=== PATIENT | female | born 2000 | race Caucasian/White ===

== ENCOUNTER 2018-06-24 18:35 | Emergency (ER) | payer BC ==
[2018-06-24 19:13] VITALS: BP 138/81
--- NOTE | 2018-06-24 19:30 | UC ---
Complaint Female HPI - HPI Summary HPI Summary: 17 yo female presents requesting STD testing. She tells me that she broke up with her boyfriend 1 month ago and knows that he was unfaithful and has a "bad history". She is not having any symptoms and does not believe the boyfriend has any STDs, but she is requesting testing. She does not want to any blod testing due to extreme fear of needles. Denies fever, chills, abdominal pain, n/v, dysuria, vaginal discharge or itching. - History Of Current Complaint Chief Complaint: UCGU Stated Complaint: PERSONAL Time Seen by Provider: 06/24/18 19:15 Hx Last Menstrual Period: 2 weeks ago spotting Severity Currently: None Pain Intensity: 0 Pain Scale Used: 0-10 Numeric - Allergies/Home Medications Allergies/Adverse Reactions: Allergies Allergy/AdvReac Type Severity Reaction Status Date / Time No Known Allergies Allergy Verified 06/24/18 19:14 Home Medications: Home Medications medroxyPROGESTERone ACETATE* [DEPO-Provera] 150 mg IM SEE INSTRUCTIONS 06/24/18 [History Confirmed 06/24/18] PMH/Surg Hx/FS Hx/Imm Hx - Additional Past Medical History Additional PMH: None - Surgical History Surgical History: None Surgery Procedure, Year, and Place: Denies - Family History Known Family History: Positive: None - Social History Occupation: Student Lives: Dormitory/Roommates Alcohol Use: Rare Substance Use Type: None Smoking Status (MU): Never Smoked Tobacco - Immunization History Vaccination Up to Date: Yes Review of Systems Constitutional: Negative Skin: Negative Cardiovascular: Negative Gastrointestinal: Negative Genitourinary: Negative Neurovascular: Negative Neurological: Negative Psychological: Negative All Other Systems Reviewed And Are Negative: Yes Physical Exam - Summary Physical Exam Summary: GENERAL: NAD. WDWN. No pain distress. SKIN: No rashes, sores, lesions, or open wounds. NECK: Supple. Nontender. No lymphadenopathy. CHEST: CTAB. No r/r/w. No accessory muscle use. Breathing comfortably and in no distress. CV: RRR. Without m/r/g. Pulses intact. Cap refill <2seconds ABDOMEN: Soft. NTTP. No distention or guarding. No CVA tenderness. Bowel sounds present NEURO: Alert. PSYCH: Age appropriate behavior. Triage Information Reviewed: Yes Vital Signs: Initial Vital Signs Temp 99.2 F 06/24/18 19:01 Pulse 93 06/24/18 19:01 Resp 20 06/24/18 19:01 BP 138/81 06/24/18 19:01 Pulse Ox 98 06/24/18 19:01 Vital Signs Reviewed: Yes Complaint Female Dx - Course Course Of Treatment: Declined blood testing or pelvic exam today. Will test for GC/C via urine and have pt f/u if she develops symptoms or would like further testing. - Differential Dx/Diagnosis Provider Diagnoses: High risk sexual activity Discharge - Sign-Out/Discharge Documenting (check all that apply): Patient Departure All imaging exams completed and their final reports reviewed: No Studies - Discharge Plan Condition: Stable Disposition: HOME Patient Education Materials: Sexually Transmitted Diseases (ED) Referrals: No Primary Care Phys,NOPCP [Primary Care Provider] - Additional Instructions: If you develop a fever, shortness of breath, chest pain, new or worsening symptoms - please call your PCP or go to the ED. 1) We will call you with results of your tests today - Billing Disposition and Condition Condition: STABLE Disposition: Home
--- NOTE | 2018-06-26 21:46 | UC ---
- Progress Note Progress Note: + Chlamydia reported. Patient contacted, has not been treated. Azithromycin sent to pharmacy. Discharge - Sign-Out/Discharge Documenting (check all that apply): Patient Departure All imaging exams completed and their final reports reviewed: No Studies - Discharge Plan Condition: Stable Disposition: HOME Prescriptions: Azithromycin TAB* [Zithromax TAB (Z-YARELI) 250 mg #6 tabs] 4 tab PO DAILY #4 tab Patient Education Materials: Sexually Transmitted Diseases (ED) Referrals: No Primary Care Phys,NOPCP [Primary Care Provider] - Additional Instructions: If you develop a fever, shortness of breath, chest pain, new or worsening symptoms - please call your PCP or go to the ED. 1) We will call you with results of your tests today - Billing Disposition and Condition Condition: STABLE Disposition: Home
== END 2018-06-24 19:40 | disposition home or self-care (01) ==
LOC: UCCORT 18:35
DX: Z72.51 High risk heterosexual behavior (principal)
CPT/HCPCS: 81003; 87086; 87491; 87591; 99211; G0463

== ENCOUNTER 2019-07-04 14:05 | Emergency (ER) | payer BC ==
[2019-07-04 15:59] VITALS: BP 119/65
--- NOTE | 2019-07-04 16:48 | UC ---
Throat Pain/Nasal Derick HPI - HPI Summary HPI Summary: 18-year-old female presents with onset of nasal congestion, clear nasal discharge, sinus pressure, sore throat, ear fullness, and occasional dry nonproductive cough yesterday. Denies fever, chills, dysphagia, chest pain, or shortness of breath. - History of Current Complaint Chief Complaint: UCGeneralIllness Stated Complaint: CONGESTION RUNNY NOSE SORE THROAT Time Seen by Provider: 07/04/19 16:27 Hx Obtained From: Patient Hx Last Menstrual Period: 06/22/19 Pain Intensity: 4 - Allergies/Home Medications Allergies/Adverse Reactions: Allergies Allergy/AdvReac Type Severity Reaction Status Date / Time No Known Allergies Allergy Verified 07/04/19 15:59 Home Medications: Home Medications NK [No Home Medications Reported] 07/04/19 [History Confirmed 07/04/19] PMH/Surg Hx/FS Hx/Imm Hx Previously Healthy: Yes - Denies significant PMH - Surgical History Surgical History: None Surgery Procedure, Year, and Place: Denies - Family History Known Family History: Positive: Non-Contributory - Social History Occupation: Student Lives: Dormitory/Roommates Alcohol Use: Rare Substance Use Type: None Smoking Status (MU): Never Smoked Tobacco - Immunization History Vaccination Up to Date: Yes Review of Systems All Other Systems Reviewed And Are Negative: Yes Constitutional: Negative: Fever, Chills Skin: Negative: Rash Eyes: Negative: Drainage, Eye Redness ENT: Positive: Sore Throat, Nasal Discharge, Sinus Congestion, Sinus Pain/ Tenderness. Negative: Ear Ache Respiratory: Positive: Cough. Negative: Shortness Of Breath Cardiovascular: Negative: Chest Pain Gastrointestinal: Positive: Negative Genitourinary: Positive: Negative Musculoskeletal: Positive: Negative Neurological: Positive: Negative Is Patient Immunocompromised?: No Physical Exam - Summary Physical Exam Summary: GENERAL APPEARANCE: Well developed, well nourished, alert and cooperative, and appears to be in no acute distress. EYES: Conjunctiva clear. No drainage. EARS: External auditory canals and tympanic membranes clear, hearing grossly intact. NOSE: Moderate nasal congestion. Clear nasal discharge. THROAT: Mild pharyngeal erythema. No tonsilar inflammation, swelling, exudate, or lesions. Uvula midline. NECK: Neck supple, non-tender without lymphadenopathy. CARDIAC: Normal S1 and S2. No S3, S4 or murmurs. Rhythm is regular. There is no peripheral edema, cyanosis or pallor. Extremities are warm and well perfused. Capillary refill is less than 2 seconds. Peripheral pulses intact. LUNGS: Clear to auscultation without rales, rhonchi, wheezing or diminished breath sounds. ABDOMEN: Positive bowel sounds. Soft, nondistended, nontender. No guarding or rebound. No masses or hepatosplenomegally. MUSKULOSKELETAL: ROM intact to all extremities. No joint erythema or tenderness. Normal muscular development. Normal gait. SKIN: Skin normal color, texture and turgor with no lesions or eruptions. Triage Information Reviewed: Yes Vital Signs: Initial Vital Signs Temp 99.7 F 07/04/19 15:55 Pulse 97 07/04/19 15:55 Resp 16 07/04/19 15:55 BP 119/65 07/04/19 15:55 Pulse Ox 100 07/04/19 15:55 Vital Signs Reviewed: Yes Throat Pain/Nasal Course/Dx - Course Course Of Treatment: 18-year-old female presents with onset of nasal congestion, clear nasal discharge, sinus pressure, sore throat, ear fullness, and occasional dry nonproductive cough yesterday. Denies fever, chills, dysphagia, chest pain, or shortness of breath. Afebrile. Vital signs stable. Patient water nasal congestion with clear nasal discharge, pharyngeal erythema without tonsillar swelling or exudate, no cervical lymphadenopathy, clear bilateral breath sounds , and otherwise unremarkable exam. Recommending symptomatic treatment for a viral upper respiratory infection. She is to follow-up with the primary care provider in 5-7 days if symptoms are not improving. Anticipatory guidance and warning symptoms reviewed with the patient. Verbalizes understanding and agrees with plan of care. - Differential Dx/Diagnosis Differential Diagnosis/HQI/PQRI: Otitis Media, Pharyngitis, Sinusitis, Tonsillitis, URI Provider Diagnosis: Viral upper respiratory infection Discharge ED - Sign-Out/Discharge Documenting (check all that apply): Patient Departure All imaging exams completed and their final reports reviewed: No Studies - Discharge Plan Condition: Stable Disposition: HOME Patient Education Materials: Upper Respiratory Infection (ED) Referrals: Alon Lerma PA [Primary Care Provider] - 5 Days Additional Instructions: Your history and exam are consistent with a viral upper respiratory infection. Viral infections do not respond to antibiotics and are limited to the treatment of symptoms. Viral infections typically run their course in 7-10 days. Drink plenty of fluids to avoid dehydration especially if you are running any fever. Use an over the counter decongestant such as Sudafed according to directions to help with the nasal congestion and pressure. Use over the counter fluticasone (Flonase) nasal spray 2 sprays each nostril once daily. Take over the counter acetaminophen (Tylenol) or ibuprofen (Advil, Motrin) according to directions as needed for pain or fever. Use salt water gargles several times a day if you have a sore throat. You may also use Chloraseptic spray or Cepacol lonzenges according to directions which contain a numbing medication and can provide some temporary relief from your sore throat. Follow up with your primary care provider in 5-7 days if symptoms persist. Seek immediate medical attention in the emergency room if you have fever greater than 100.5 F despite taking acetaminophen or ibuprofen, have chest pain , difficulty breathing, are unable to swallow, or have any worsening of symptoms. - Billing Disposition and Condition Condition: STABLE Disposition: Home
== END 2019-07-04 17:07 | disposition home or self-care (01) ==
LOC: UCCORT 14:05
DX: J06.9 Acute upper respiratory infection, unspecified (principal)
CPT/HCPCS: 99211; G0463

== ENCOUNTER 2023-12-10 18:14 | Inpatient (IN) ==
[2023-12-10] MEDS ORDERED: Lidocaine 1% VIAL 10 MG/ML 30 ML VIAL INJ PRN (19:22)
[2023-12-10] MEDS: Dinoprostone 10 MG VAG.SUPP VAGINAL ONE (20:31)
[2023-12-10 23:12] LABS: Urine Benzodiazepine Screen None Detected (None Detect); Urine Cannabinoids Screen None Detected (None Detect); Urine Opiates Screen None Detected (None Detect)
[2023-12-11 08:32] LABS: ABS Eosinophils 0.1 10^3/uL (0.0-0.5); ABS Lymphocytes 2.6 10^3/uL (1.0-4.8); ABS Monocytes 0.8 10^3/uL (0.0-0.9); ABS Neutrophils 9.7 10^3/uL (1.5-7.6); ABS Nucleated RBC 0.01 10^3/ul; Hematocrit 34.8 % (35-45); Hemoglobin 11.8 g/dL (11.5-14.3); Lymphocyte % 19.6 %; Mean Corpuscular Hemoglobin 27.5 pg (27-33); Mean Corpuscular Hgb Conc 33.7 g/dL (31-36); Mean Corpuscular Volume 81.6 fL (80-97); Platelet Count 338 10^3/uL (150-450); Red Blood Count 4.27 10^6/uL (3.63-4.92); Red Cell Distribution Width 14.4 % (12-17); White Blood Count 13.3 10^3/uL (3.8-11.8)
[2023-12-11] MEDS: Lactated Ringers 1000 ml BAG 1,000 ML IV ONE (10:53)
[2023-12-11] MEDS: Penicillin G Potassium IV 5,000,000 UNITS in NS 0.9% 100 ml BAG 100 ML IVPB ONE (10:53)
[2023-12-11] MEDS: Oxytocin in LR 20,000 MILLI.UNIT/1,000 ML BAG IV SCH (10:58)
[2023-12-11] MEDS: Penicillin G Potassium IV 3,000,000 UNITS in NS 0.9% 100 ml BAG 100 ML IVPB SCH (15:13)
[2023-12-11] MEDS: Lactated Ringers 1000 ml BAG 1,000 ML IV SCH (17:10)
[2023-12-11] MEDS ORDERED: Phenylephrine 40 mcg/mL 10mL (400mcg) SYRINGE IV PUSH PRN ×2 (21:39)
[2023-12-11] MEDS ORDERED: Lactated Ringers 1000 ml BAG 500 ML IV PRN ×2 (21:39)
[2023-12-11] MEDS ORDERED: Sodium Citrate/Citric Acid LIQ 15 ML UDC PO PRN (21:39)
[2023-12-11] MEDS: Bupivacaine 0.5% SDV PF 30ML VIAL ONE (22:43)
[2023-12-11] MEDS: OBEPIDURAL (200 ML) 200 ML EPIDURAL SCH (23:55)
[2023-12-12] MEDS ORDERED: Glycerin ADULT 2.4 gm SUPP PR PRN (01:07)
[2023-12-12] MEDS ORDERED: Lactated Ringers 1000 ml BAG 1,000 ML IV SCH (02:00)
[2023-12-12] MEDS: Dibucaine 1% OINT 28.35 GM TUBE PR PRN (08:18)
[2023-12-12] MEDS: Witch Hazel PAD JAR TOPICAL PRN (08:18)
[2023-12-12] MEDS: Lidocaine 1.5% EPI 1:200,000 30 ML SDV ONE (10:13)
[2023-12-12] MEDS: Lactated Ringers 1000 ml BAG 1,000 ML IV ONE (10:13)
[2023-12-12] MEDS: Lactated Ringers 1000 ml BAG 1,000 ML IV SCH (10:13)
[2023-12-12] MEDS: Buffered Lidocaine 1% SYRIN 1 ml INTRADERM ONE (12:57)
[2023-12-13 06:58] LABS: ABS Basophils 0.1 10^3/uL (0.0-0.1); ABS Eosinophils 0.2 10^3/uL (0.0-0.5); ABS Lymphocytes 3.4 10^3/uL (1.0-4.8); ABS Neutrophils 7.7 10^3/uL (1.5-7.6); Eosinophil % 1.4 %; Hematocrit 30.2 % (35-45); Hemoglobin 10.2 g/dL (11.5-14.3); Lymphocyte % 27.2 %; Mean Corpuscular Hgb Conc 33.8 g/dL (31-36); Mean Corpuscular Volume 82.8 fL (80-97); Mean Platelet Volume 8.8 fL (7.5-11.2); Platelet Count 283 10^3/uL (150-450); Red Blood Count 3.64 10^6/uL (3.63-4.92); Red Cell Distribution Width 14.6 % (12-17); White Blood Count 12.3 10^3/uL (3.8-11.8)
[2023-12-14 08:23] VITALS: BP 135/62
== END 2023-12-14 11:14 | disposition home or self-care (01) | DRG 560 ==
LOC: MCHOBOUT 18:14 → MCHOB 19:14
PROVIDERS: ADMIT Midwife; ATTEND Registered Nurse